=== PATIENT | male | born 1990 | race Caucasian/White ===

== ENCOUNTER 2018-01-24 12:52 | Emergency (ER) | payer OTHER ==
[~2018-01-24] VITALS: Ht 167.6 cm; Wt 67.2 kg
[2018-01-24 17:20] VITALS: BP 115/75
== END 2018-01-24 17:24 | disposition home or self-care (01) ==
LOC: ER 12:52
DX: S00.412A Abrasion of left ear, initial encounter (principal); F17.200 Nicotine dependence, unspecified, uncomplicated; F12.10 Cannabis abuse, uncomplicated; X58.XXXA Exposure to other specified factors, initial encounter; Y93.89 Activity, other specified; Y92.89 Other specified places as the place of occurrence of the external cause; Y99.8 Other external cause status
CPT/HCPCS: 99282; 99283

== ENCOUNTER 2020-03-20 14:54 | Emergency (ER) | payer OTHER ==
[~2020-03-20] VITALS: Ht 167.6 cm; Wt 59.0 kg
[2020-03-20] MEDS ORDERED: KETOROLAC 30MG/ML VIAL IM ONE (15:45)
[2020-03-20] MEDS ORDERED: DEXAMETHASONE 4MG/ML 1ML VIAL IM ONE (17:00)
[2020-03-20] MEDS ORDERED: DEXAMETHASONE 10 MG/ML VIAL IM SCH (17:00)
[2020-03-20 17:36] VITALS: BP 122/76
== END 2020-03-20 17:34 | disposition home or self-care (01) ==
LOC: ER 14:54
DX: S93.401A Sprain of unspecified ligament of right ankle, initial encounter (principal); M10.9 Gout, unspecified; F12.10 Cannabis abuse, uncomplicated; X58.XXXA Exposure to other specified factors, initial encounter; Y93.89 Activity, other specified; Y92.89 Other specified places as the place of occurrence of the external cause; Y99.8 Other external cause status
CPT/HCPCS: 73610; 96372; 99284; J1100; J1885

== ENCOUNTER 2021-02-16 15:16 | Emergency (ER) | payer MEDICAID ==
[~2021-02-16] VITALS: Ht 172.7 cm; Wt 75.0 kg
[~2021-02-16 15:16] MED LIST: AMOX-424 MT; DOXY100T2 MT; IBUP-2029 MT
[2021-02-16 15:58] VITALS: BP 152/90
[2021-02-16] MEDS ORDERED: IBUP-2029 PO (17:16)
== END 2021-02-16 17:42 | disposition home or self-care (01) ==
LOC: ER 15:16
DX: S90.31XA Contusion of right foot, initial encounter (principal); R03.0 Elevated blood-pressure reading, without diagnosis of hypertension; V00.131A Fall from skateboard, initial encounter; Y93.51 Activity, roller skating (inline) and skateboarding; Y92.488 Other paved roadways as the place of occurrence of the external cause
CPT/HCPCS: 73630; 99283

== ENCOUNTER 2022-05-20 12:47 | Emergency (ER) | payer MEDICAID ==
[~2022-05-20] VITALS: Ht 170.2 cm; Wt 68.0 kg
[~2022-05-20 12:47] MED LIST changes: +IBUP-2029 PO
[2022-05-20 12:54] VITALS: BP 119/79
[2022-05-20] MEDS ORDERED: CLIN-116 PO (16:44)
[2022-05-20] MEDS ORDERED: BACITRACIN 15GM TUBE TOP ONE (17:00)
== END 2022-05-20 16:54 | disposition home or self-care (01) ==
LOC: ER 12:47
DX: L03.113 Cellulitis of right upper limb (principal)
CPT/HCPCS: 99283